=== PATIENT | female | born 1995 | race Caucasian/White ===

== ENCOUNTER 2017-05-05 08:06 | Emergency (ER) | payer BC ==
--- NOTE | 2017-05-05 08:35 | EDM.PDOC ---
ED HPI GENERAL MEDICAL PROBLEM - General Chief Complaint: Abdominal Pain Stated Complaint: ABD & BACK PAIN Time Seen by Provider: 05/05/17 08:06 Source of Information: Reports: Patient, Family History Limitations: Reports: No Limitations - History of Present Illness INITIAL COMMENTS - FREE TEXT/NARRATIVE: 22 y.o.w.f came to the ed due to mid abd. pain. No trauma, no N/V last BM was today, nl, solid, no blood. No other acute medical issues. BP 116/68 Pulse 66 Temp 37.0 RR 16 O2 sat 100% Onset Date: 05/03/17 Onset Time: 07:00 Duration: Day(s):, Intermittent Location: Reports: Abdomen Quality: Reports: Ache, Dull, Throbbing Severity: Moderate Improves with: Reports: Rest Worsens with: Reports: Movement Abdominal Pain Score (Numeric/FACES): 6 - Related Data Allergies Allergy/AdvReac Type Severity Reaction Status Date / Time No Known Allergies Allergy Verified 05/05/17 08:15 Home Meds: Home Meds NK [No Known Home Meds] 05/05/17 [History] Past Medical History - Past Health History Medical/Surgical History: Denies Medical/Surgical History Social & Family History - Tobacco Use Smoking Status *Q: Never Smoker - Caffeine Use Caffeine Use: Reports: Energy Drinks - Recreational Drug Use Recreational Drug Use: No ED ROS GENERAL - Review of Systems Review Of Systems: See Below Constitutional: Reports: No Symptoms HEENT: Reports: No Symptoms Respiratory: Reports: No Symptoms Cardiovascular: Reports: No Symptoms Endocrine: Reports: No Symptoms GI/Abdominal: Reports: Abdominal Pain : Reports: No Symptoms Musculoskeletal: Reports: No Symptoms Skin: Reports: No Symptoms Neurological: Reports: No Symptoms Psychiatric: Reports: No Symptoms Hematologic/Lymphatic: Reports: No Symptoms Immunologic: Reports: No Symptoms ED EXAM, GI/ABD - Physical Exam Exam: See Below Exam Limited By: No Limitations General Appearance: Alert, WD/WN, Mild Distress Eyes: Bilateral: Normal Appearance Ears: Normal External Exam Nose: Normal Inspection Throat/Mouth: Normal Inspection Head: Atraumatic, Normocephalic Neck: Normal Inspection, Supple, Non-Tender, Full Range of Motion Respiratory/Chest: No Respiratory Distress, Lungs Clear Cardiovascular: Normal Peripheral Pulses, Regular Rate, Rhythm, No Edema GI/Abdominal Exam: Tender (periumbilical) (Female) Exam: Deferred Rectal (Female) Exam: Deferred Back Exam: Normal Inspection, Full Range of Motion Extremities: Normal Inspection, Normal Range of Motion, Non-Tender, No Pedal Edema, Normal Capillary Refill Neurological: Alert, Oriented, CN II-XII Intact, Normal Cognition, Other (abd. pain get worse when walking) Psychiatric: Normal Affect Skin Exam: Warm, Dry, Intact, Normal Color, No Rash Lymphatic: No Adenopathy Course - Vital Signs Text/Narrative:: 22 y.o.w.f came to the ed due to mid abd. pain. No trauma, no N/V last BM was today, nl, solid, no blood. No other acute medical issues. BP 116/68 Pulse 66 Temp 37.0 RR 16 O2 sat 100% PE: Perumbilical tenderness Imaging: Ovarian Cyst, ruptured, Incidental left adrenal lesion, needs MRI, not emergent. Labs: CBC neg , UA neg for UTI, BMP was pos for Na 134 and UPT were neg Impression: Ovarian Cyst, ruptured Tx: Pt refused pain meds Plan: D/C with instructions Last Recorded V/S: Last Vital Signs Temp 37.0 C 05/05/17 08:18 Pulse 67 05/05/17 12:09 Resp 14 05/05/17 12:09 BP 104/55 L 05/05/17 12:09 Pulse Ox 100 05/05/17 12:09 - Orders/Labs/Meds Orders: Active Orders 24 hr Category Date Time Status Abdomen Pelvis w Cont [CT] Stat Exams 05/05/17 09:36 Taken Saline Lock Insert [OM.PC] Routine Oth 05/05/17 09:45 Ordered Labs: Laboratory Tests 05/05/17 05/05/17 05/05/17 Range/Units 08:35 08:35 08:43 WBC 8.8 (4.5-12.0) X10-3/uL RBC 4.19 (3.23-5.20) x10(6)uL Hgb 13.1 (11.5-15.5) g/dL Hct 37.3 (30.0-51.3) % MCV 89.1 (80-96) fL MCH 31.4 (27.7-33.6) pg MCHC 35.2 (32.2-35.4) g/dL RDW 11.2 L (11.5-15.5) % Plt Count 279 (125-369) X10(3)uL MPV 7.7 (7.4-10.4) fL Neut % (Auto) 71.1 (46-82) % Lymph % (Auto) 18.8 (13-37) % [place] % (Auto) 8.8 (4-12) % Eos % (Auto) 1 (1.0-5.0) % Baso % (Auto) 1 (0-2) % Neut # (Auto) 6.2 (1.6-8.3) # Lymph # (Auto) 1.6 (0.6-5.0) # [place] # (Auto) 0.8 (0.0-1.3) # Eos # (Auto) 0.1 (0.0-0.8) # Baso # (Auto) 0.1 (0.0-0.2) # Sodium 134 L (135-145) mmol/L Potassium 4.0 (3.5-5.3) mmol/L Chloride 103 (100-110) mmol/L Carbon Dioxide 24 (23-29) mmol/L BUN 14 (5-20) mg/dL Creatinine 0.7 (0.6-1.3) mg/dL Est Cr Clr Drug Dosing 104.28 mL/min Estimated GFR (MDRD) > 60 (>60) BUN/Creatinine Ratio 20.0 (9-20) Glucose 109 (80-116) mg/dL Calcium 8.7 (8.6-10.2) mg/dL Total Bilirubin 0.7 (0.1-1.3) mg/dL Direct Bilirubin 0.1 (0.1-0.2) mg/dL AST 19 (5-27) IU/L ALT 13 L (14-26) IU/L Alkaline Phosphatase 54 L (56-112) IU/L Total Protein 7.7 (6.0-8.0) g/dL Albumin 4.3 (3.5-5.2) g/dL Amylase 39 (28-100) U/L Urine Color (YELLOW) Urine Appearance (CLEAR) Urine pH (5.0-6.5) Ur Specific [place] (1.010-1.025) Urine Protein (NEGATIVE) mg/dL Urine Glucose (UA) (NEGATIVE) mg/dL Urine Ketones (NEGATIVE) mg/dL Urine Occult Blood (NEGATIVE) Urine Nitrite (NEGATIVE) Urine Bilirubin (NEGATIVE) Urine Urobilinogen (NEGATIVE) mg/dL Ur Leukocyte Esterase (NEGATIVE) Urine WBC (0) Ur Squamous Epith Cells (NS,R,O) Urine Bacteria (NS) Urine HCG, Qual Negative (NEGATIVE) 05/05/17 Range/Units 08:43 WBC (4.5-12.0) X10-3/uL RBC (3.23-5.20) x10(6)uL Hgb (11.5-15.5) g/dL Hct (30.0-51.3) % MCV (80-96) fL MCH (27.7-33.6) pg MCHC (32.2-35.4) g/dL RDW (11.5-15.5) % Plt Count (125-369) X10(3)uL MPV (7.4-10.4) fL Neut % (Auto) (46-82) % Lymph % (Auto) (13-37) % [place] % (Auto) (4-12) % Eos % (Auto) (1.0-5.0) % Baso % (Auto) (0-2) % Neut # (Auto) (1.6-8.3) # Lymph # (Auto) (0.6-5.0) # [place] # (Auto) (0.0-1.3) # Eos # (Auto) (0.0-0.8) # Baso # (Auto) (0.0-0.2) # Sodium (135-145) mmol/L Potassium (3.5-5.3) mmol/L Chloride (100-110) mmol/L Carbon Dioxide (23-29) mmol/L BUN (5-20) mg/dL Creatinine (0.6-1.3) mg/dL Est Cr Clr Drug Dosing mL/min Estimated GFR (MDRD) (>60) BUN/Creatinine Ratio (9-20) Glucose (80-116) mg/dL Calcium (8.6-10.2) mg/dL Total Bilirubin (0.1-1.3) mg/dL Direct Bilirubin (0.1-0.2) mg/dL AST (5-27) IU/L ALT (14-26) IU/L Alkaline Phosphatase (56-112) IU/L Total Protein (6.0-8.0) g/dL Albumin (3.5-5.2) g/dL Amylase (28-100) U/L Urine Color Yellow (YELLOW) Urine Appearance Slightly cloudy (CLEAR) Urine pH 6.5 (5.0-6.5) Ur Specific [place] 1.015 (1.010-1.025) Urine Protein Negative (NEGATIVE) mg/dL Urine Glucose (UA) Normal (NEGATIVE) mg/dL Urine Ketones 15 H (NEGATIVE) mg/dL Urine Occult Blood Negative (NEGATIVE) Urine Nitrite Negative (NEGATIVE) Urine Bilirubin Negative (NEGATIVE) Urine Urobilinogen 4 H (NEGATIVE) mg/dL Ur Leukocyte Esterase Negative (NEGATIVE) Urine WBC 0-5 (0) Ur Squamous Epith Cells Few H (NS,R,O) Urine Bacteria Moderate H (NS) Urine HCG, Qual (NEGATIVE) Meds: Medications Discontinued Medications Generic Name Dose Route Start Last Admin Trade Name Freq PRN Reason Stop Dose Admin Diatrizoate Meglum/Diatrizoate Sod 30 ml 05/05/17 10:15 05/05/17 11:10 Gastrografin 37% PO 30 ml . DIRECTED SARAH Administration Iopamidol 75 ml 05/05/17 10:03 05/05/17 11:10 Isovue-370 (76%) IV 05/05/17 10:04 73 ml ASDIRECTED ONE Administration Sodium Chloride 10 ml 05/05/17 09:45 Saline Flush FLUSH ASDIRECTED PRN Keep Vein Open Departure - Departure Time of Disposition: 12:10 Disposition: Home, Self-Care 01 Condition: Good Clinical Impression: Ovarian cyst Qualifiers: Laterality: right Qualified Code(s): N83.201 - Unspecified ovarian cyst, right side - Discharge Information Referrals: PCP,None [Primary Care Provider] - Forms: ED Department Discharge Additional Instructions: Please take tylenol, motrin for pain, please follow up, come back to the ed if your symptoms get worse acutely - My Orders Last 24 Hours: My Active Orders 05/05/17 09:36 Abdomen Pelvis w Cont [CT] Stat 05/05/17 09:45 Saline Lock Insert [OM.PC] Routine - Assessment/Plan Last 24 Hours: My Active Orders 05/05/17 09:36 Abdomen Pelvis w Cont [CT] Stat 05/05/17 09:45 Saline Lock Insert [OM.PC] Routine
[2017-05-05] MEDS ORDERED: Sodium Chloride 0.9% 10 ML Syringe FLUSH PRN (09:45)
[2017-05-05] MEDS ORDERED: Iopamidol 755 Mg/ML 75 ML Bottle IV ONE (10:03)
[2017-05-05] MEDS ORDERED: Diatrizoate Meglumine/Diatrizoate Sodium 37% 30 ML Bottle PO SCH (10:15)
== END 2017-05-05 12:13 | disposition home or self-care (01) ==
LOC: FB.ED 08:06
DX: N83.201 Unspecified ovarian cyst, right side (principal)
CPT/HCPCS: 36415; 74177; 80048; 80076; 81001; 81025; 82150; 85025; 99284; A9270; Q9967

== ENCOUNTER 2019-12-01 15:34 | Emergency (ER) | payer BC ==
--- NOTE | 2019-12-01 16:03 | EDM.PDOC ---
ED HPI GENERAL MEDICAL PROBLEM - General Chief Complaint: Head Injury Stated Complaint: HIT HEAD REALLY HARD Time Seen by Provider: 12/01/19 15:50 Source of Information: Reports: Patient History Limitations: Reports: No Limitations - History of Present Illness INITIAL COMMENTS - FREE TEXT/NARRATIVE: Vianey comes into [facility] for inspection of an injury to the forehead after striking shelving while feeding her dog earlier today. She is experiencing headache, dizziness, and malaise. There was no LOC, wounding, neck or back pain. She has taken no meds. Of interest is a PMH of concussion, last episode during 2012, without apparent sequelae. She is on no prescription meds. head Pain Score (Numeric/FACES): 7 - Related Data Allergies Allergy/AdvReac Type Severity Reaction Status Date / Time No Known Allergies Allergy Verified 05/05/17 08:15 Home Meds: Home Meds NK [No Known Home Meds] 05/05/17 [History] Past Medical History - Past Health History Medical/Surgical History: Denies Medical/Surgical History Social & Family History - Caffeine Use Caffeine Use: Reports: Energy Drinks ED ROS GENERAL - Review of Systems Review Of Systems: Comprehensive ROS is negative, except as noted in HPI. ED EXAM, HEAD INJURY - Physical Exam Exam: See Below General Appearance: Alert, WD/WN, No Apparent Distress Head: Facial Swelling (minor contusion overlying R frontal eminence, no step off ), Facial Tenderness Eyes: Bilateral Eye: EOMI, Normal Inspection, PERRL Ears: Normal Canal, Hearing Loss Nose: Normal Inspection Throat/Mouth: Normal Inspection, Normal Lips, Normal Teeth, Normal Oropharynx, Normal Voice, No Airway Compromise Neck: Full Range of Motion, Normal Alignment Respiratory: Lungs Clear, Chest Non-Tender Cardiovascular: Regular Rate, Rhythm, No Murmur GI/Abdominal Exam: Normal Bowel Sounds, Soft, Non-Tender, No Organomegaly (Female) Exam: Deferred Rectal (Female) Exam: Deferred Back Exam: Normal Inspection, Full Range of Motion Extremities: Normal Inspection Neurologic: mineral mixer II-XII nml As Tested, No Motor/Sensory Deficits, Alert, Normal Mood/Affect, Oriented x 3 Skin: Normal Color, Warm/Dry Course - Vital Signs Text/Narrative:: Clinical course unremarkable. A concussion is not suspected. Last Recorded V/S: Last Vital Signs Temp 36.9 C 12/01/19 15:40 Pulse 77 12/01/19 15:40 Resp 16 12/01/19 15:40 BP 120/58 L 12/01/19 15:40 Pulse Ox 99 12/01/19 15:40 Departure - Departure Time of Disposition: 16:05 Disposition: Home, Self-Care 01 Condition: Fair Clinical Impression: Contusion of forehead Qualifiers: Encounter type: initial encounter Qualified Code(s): S00.83XA - Contusion of other part of head, initial encounter - Discharge Information *PRESCRIPTION DRUG MONITORING PROGRAM REVIEWED*: Not Applicable *COPY OF PRESCRIPTION DRUG MONITORING REPORT IN PATIENT LENNY: Not Applicable Instructions: Head Injury, Adult, Contusion Referrals: Grace Perkins MD [Primary Care Provider] - Forms: ED Department Discharge Sepsis Event Note - Evaluation Sepsis Screening Result: No Definite Risk - Focused Exam Vital Signs: Vital Signs Temp Pulse Resp BP Pulse Ox 12/01/19 15:40 36.9 C 77 16 120/58 L 99 Date Exam was Performed: 12/01/19 Time Exam was Performed: 16:16 - Problem List & Annotations (1) Contusion of forehead SNOMED Code(s): 610648221 Code(s): S00.83XA - CONTUSION OF OTHER PART OF HEAD, INITIAL ENCOUNTER Status: Acute Current Visit: Yes Annotation/Comment:: Contusion of forehead , managed with NSAIDs, cool pack for comfort, and rest. Qualifiers: Encounter type: initial encounter Qualified Code(s): S00.83XA - Contusion of other part of head, initial encounter - Problem List Review Problem List Initiated/Reviewed/Updated: Yes - Assessment/Plan Plan: Follow up with PCP if needed.
== END 2019-12-01 16:05 | disposition home or self-care (01) ==
LOC: FB.ED 15:34
DX: S00.83XA Contusion of other part of head, initial encounter (principal); W22.8XXA Striking against or struck by other objects, initial encounter
CPT/HCPCS: 99283

== ENCOUNTER 2020-12-19 19:09 | Emergency (ER) | payer SELFPAY ==
--- NOTE | 2020-12-19 19:44 | EDM.PDOC ---
ED HPI GENERAL MEDICAL PROBLEM - General Chief Complaint: Bite:Animal, Insect Stated Complaint: Dog bite Time Seen by Provider: 12/19/20 19:40 Source of Information: Reports: Patient History Limitations: Reports: No Limitations - History of Present Illness INITIAL COMMENTS - FREE TEXT/NARRATIVE: 25-year-old female who was wrestling and playing with her dog which is a [place] and the dog bit her on her right forearm. This occurred approximately 6:45 PM. There are some scratches and some very minor puncture wounds to the dorsal aspect of the right forearm and then there is a puncture wound that is somewhat deeper than the volar aspect of the mid right forearm. There was some bleeding but it has been controlled with direct pressure. She does have pain in the area that she reports is a stinging and sharp pain but also throbbing. It is worse with palpation and with movement of her fingers, wrist and forearm. The pain does not radiate. It is a 7-8/10. There were no other injuries. No nausea or vomiting. She has some tingling in her fingers but she has full function and the right hand. There are no other associated signs or symptoms. There are no other modifying factors. 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 (see below) (Nothing.) - Related Data Allergies Allergy/AdvReac Type Severity Reaction Status Date / Time No Known Allergies Allergy Verified 12/19/20 19:34 Home Meds: Home Meds Amoxicillin/Clavulanate K [Augmentin 875-125 MG] 1 tab PO BID 7 Days #14 tablet 12/19/20 [Rx] Venlafaxine HCl [Venlafaxine ER] 150 mg PO DAILY 12/19/20 [History] Past Medical History Psychiatric History: Reports: Anxiety, Depression - Past Surgical History HEENT Surgical History: Reports: Myringotomy w Tube(s), Oral Surgery ([place] teeth extraction), Tonsillectomy, Other (See Below) (Frenulectomy) Social & Family History - Tobacco Use Tobacco Use Status *Q: Unknown Ever Used Tobacco (Nonsmoker.) - Caffeine Use Caffeine Use: Reports: Energy Drinks - Alcohol Use Alcohol Use History: Yes Alcohol Use Frequency: Rarely - Living Situation & Occupation Living situation: Reports: (With same-sex partner) Occupation: Employed (Works at the local [email or web address] ED ROS GENERAL - Review of Systems Review Of Systems: See Below Constitutional: Denies: Fever, Chills HEENT: Denies: Throat Pain, Vision Change Respiratory: Denies: Shortness of Breath, Cough Cardiovascular: Denies: Chest Pain, Lightheadedness GI/Abdominal: Denies: Nausea, Vomiting : Denies: Dysuria, Frequency Musculoskeletal: Reports: Arm Pain. Denies: Hand Pain Skin: Reports: Wound (Puncture wound on the right forearm). Denies: Diaphoresis Neurological: Denies: Dizziness, Headache Hematologic/Lymphatic: Denies: Easy Bleeding, Easy Bruising Immunologic: Reports: Other (The patient is up-to-date on her tetanus immunization with 1 being given within the last 5 years.) ED EXAM, ANIMAL BITE - Physical Exam Exam: See Below Exam Limited By: No Limitations General Appearance: Alert, WD/WN, Mild Distress (Appears in some pain. Otherwise nontoxic.) Eye Exam: Bilateral Eye: EOMI, Normal Inspection, PERRL Ears: Normal External Exam, Hearing Grossly Normal Nose: Normal Inspection, Normal Mucosa, No Blood Throat/Mouth: Normal Inspection, Normal Lips, Normal Oropharynx, Normal Voice, No Airway Compromise Head: Atraumatic, Normocephalic Neck: Normal Inspection, Supple, Non-Tender, Full Range of Motion Respiratory/Chest: No Respiratory Distress, Lungs Clear, Normal Breath Sounds, No Accessory Muscle Use, Chest Non-Tender Cardiovascular: Normal Peripheral Pulses, Regular Rate, Rhythm, No Murmur Peripheral Pulses: 2+: Radial (L), Radial (R) GI/Abdominal: Normal Bowel Sounds, Soft, Non-Tender Back Exam: Normal Inspection Extremities: Normal Range of Motion, No Pedal Edema, Normal Capillary Refill, Other (Tender over the mid forearm in the area of the puncture wounds. No expanding hematoma.) Neurological: Alert, Oriented, CN II-XII Intact, Normal Cognition, No Motor/Sensory Deficits Psychiatric: Normal Affect Skin Exam: Normal Color, Warm/Dry, Other (Superficial puncture wounds and abrasion 2 on the dorsal aspect of the mid right forearm. Puncture wound to the volar right mid forearm which 0.3 cm in length. The bleeding.) Course - Vital Signs Last Recorded V/S: Last Vital Signs Temp 36.7 C 12/19/20 19:45 Pulse 84 12/19/20 19:45 Resp 18 12/19/20 19:45 BP 100/71 12/19/20 19:45 Pulse Ox 100 12/19/20 19:45 - Orders/Labs/Meds Meds: Medications Discontinued Medications Generic Name Dose Route Start Last Admin Trade Name Freq PRN Reason Stop Dose Admin Amoxicillin/Clavulanate Potassium 1 tab 12/19/20 19:58 12/19/20 20:26 Amoxicillin/Clavulanate K 875-125 Mg Tab PO 12/19/20 19:59 1 tab ONETIME ONE Administration - Re-Assessments/Exams Free Text/Narrative Re-Assessment/Exam: 12/19/20 20:00: Patient with dog bite to the right forearm with scrapes and minor puncture wound to the dorsal forearm and one puncture wound to the volar surface that is 0.3 cm in length and goes to the subcutaneous tissue. These areas were cleaned by the nursing staff and a Steri-Strip was applied to this area. An appropriate supportive dressing was applied to this. She was also given Augmentin 875 mg by mouth. I discussed all of this with the patient. I will send a prescription of Augmentin to the patient's pharmacy and she will need to take this for the next 7 days. Precautions and reasons for return to the emergency department were discussed with the patient while she was in the emergency department and were detailed in the patient's discharge instructions. Departure - Departure Time of Disposition: 20:15 Disposition: Home, Self-Care 01 Condition: Good (Stable) Clinical Impression: Dog bite of arm Qualifiers: Encounter type: initial encounter Laterality: right Qualified Code(s): S41.151A - Open bite of right upper arm, initial encounter Puncture wound of forearm, right Qualifiers: Encounter type: initial encounter Qualified Code(s): S51.831A - Puncture wound without foreign body of right forearm, initial encounter - Discharge Information Prescriptions: Amoxicillin/Clavulanate K [Augmentin 875-125 MG] 1 tab PO BID 7 Days #14 tablet Instructions: Animal Bite, Adult, [id number]-[id number], Puncture Wound, [id number] Referrals: PCP,None [Primary Care Provider] - Forms: ED Department Discharge Additional Instructions: Leave the Steri-Strips intact for the next 3-4 days at least. The other wounds with mild soap and water and apply Band-Aids until they have closed over. Avoid strenuous use with the right arm for the next 4-5 days. You can take ibuprofen and Tylenol as needed for pain. Medications as prescribed (Augmentin 875 mg). Back to the emergency department for marked increase in pain, spreading redness, fever or any other concerning signs or symptoms. Sepsis Event Note (ED) - Focused Exam Vital Signs: Vital Signs Temp Pulse Resp BP Pulse Ox 12/19/20 19:45 36.7 C 84 18 100/71 100
[2020-12-19] MEDS ORDERED: Amoxicillin/Clavulanate K 875-125 MG Tab PO ONE (19:58)
== END 2020-12-19 20:40 | disposition home or self-care (01) ==
LOC: FB.ED 19:09
DX: S51.831A Puncture wound without foreign body of right forearm, initial encounter (principal); S41.151A Open bite of right upper arm, initial encounter; W54.0XXA Bitten by dog, initial encounter; Y93.72 Activity, wrestling
CPT/HCPCS: 99283; A9270-GY

== ENCOUNTER 2021-05-09 03:49 | Emergency (ER) | payer BC ==
[2021-05-09] MEDS ORDERED: Ketorolac 30 MG/ML SDV IM ONE (04:13)
--- NOTE | 2021-05-09 04:20 | EDM.PDOC ---
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, on feet could not sleep d/t knee pain, has not been taking ibuprofen pain at patella tendon, no radiation agreed to Toradol, declined a not to miss work at 8a does not like ibuprofen, "it does not work" - Related Data Allergies Allergy/AdvReac Type Severity Reaction Status Date / Time No Known Allergies Allergy Verified 12/19/20 19:34 Home Meds: Home Meds Amoxicillin/Clavulanate K [Augmentin 875-125 MG] 1 tab PO BID 7 Days #14 tablet 12/19/20 [Rx] Venlafaxine HCl [Venlafaxine ER] 150 mg PO DAILY 12/19/20 [History] Meloxicam 15 mg PO DAILY #30 tablet 05/09/21 [Rx] Past Medical History - Past Health History Medical/Surgical History: Denies Medical/Surgical History Psychiatric History: Reports: Anxiety, Depression - Past Surgical History HEENT Surgical History: Reports: Myringotomy w Tube(s), Oral Surgery ([place] teeth extraction), Tonsillectomy, Other (See Below) (Frenulectomy) Social & Family History - Caffeine Use Caffeine Use: Reports: Energy Drinks - Living Situation & Occupation Living situation: Reports: (With same-sex partner) Occupation: Employed (Works at the local [employer].) Review of Systems - Review of Systems Review Of Systems: See Below Constitutional: Reports: No Symptoms Eyes: Reports: No Symptoms Ears: Reports: No Symptoms Nose: Reports: No Symptoms Mouth/Throat: Reports: No Symptoms Respiratory: Reports: No Symptoms Cardiovascular: Reports: No Symptoms GI/Abdominal: Reports: No Symptoms Genitourinary: Reports: No Symptoms Musculoskeletal: Reports: Other (L knee pain) Skin: Reports: No Symptoms Neurological: Reports: No Symptoms Psychiatric: Reports: No Symptoms ED EXAM, GENERAL - Physical Exam Exam: See Below Exam Limited By: No Limitations General Appearance: Alert, WD/WN Extremities: Other (neither knee is tender at patella or medial facets, patella compression test neg b/l, 1+ tender at insertion L patella tendon onto tibial plateau) Course - Re-Assessments/Exams Free Text/Narrative Re-Assessment/Exam: 05/09/21 04:25 inc'd leg girth d/t body habitus is likely stressing patella, from pt's description it sounds as 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 Use ice for 10 minutes every day when you get home from work or physical therapy or shopping. Continue physical therapy. See your doctor in one week.
== END 2021-05-09 04:40 | disposition home or self-care (01) ==
LOC: FB.ED 03:49
DX: M76.52 Patellar tendinitis, left knee (principal)
CPT/HCPCS: 96372; 99283; J1885